=== PATIENT | male | born 1950 | race Caucasian/White ===

== ENCOUNTER → 2020-06-14 13:30 | Outpatient (CLI) | payer SELFPAY, OTHER ==
--- NOTE | 2020-06-14 13:32 | CT_ITS ---
STUDY: CT SCAN LOWER EXTREMITY LEFT REASON FOR EXAM: Male, 69 years old. VARUS DEFORMITY/LEFT KNEE. [facility] protocol. RADIATION DOSAGE (If Supplied By Facility): CTDIvol = ( 18.74 ) mGy, DLP = ( 1745.95 ) mGycm. Individualized dose optimization techniques were used for this CT.? TECHNIQUE: Multiple axial tomographic images of the left hip joint, knee joint and ankle joint were obtained. Coronal and sagittal reconstruction was obtained as well. COMPARISON: None. FINDINGS: Imaging of the left hip joint was obtained. There is a mild degree of joint space narrowing. Small subchondral cyst in the superior lateral aspect of the acetabulum. There is varus deformity of the knee joint. Moderate degree of joint space narrowing of the medial compartment of the knee joint with multiple small subchondral cysts in the medial tibial plateau. Smaller cysts are also seen in the subchondral region of the medial femoral condyle. Small subchondral cysts are also seen in the lateral femoral condyle. Moderate degree of osteoarthritis of the patellofemoral joint with degenerative spur formation. Moderate size joint effusion. Imaging of the ankle joint was obtained. The ankle mortise is intact. Calcaneal spurs. CT/Extremity Lower without Contra IMPRESSION: Moderate degree of joint space narrowing of the medial compartment of knee joint with multiple subchondral cyst in the medial tibial plateau and medial femoral condyle. Mild degree of osteoarthritis involving the hip joint. Electronically Signed: Lanre Lr MD at 15:06 EDT , Service support ,
== END ==
PROVIDERS: PCP Family Medicine; Referring Provider Orthopaedic Surgery; Visit Provider Orthopaedic Surgery
DX: M21.162 Varus deformity, not elsewhere classified, left knee (principal)
CPT/HCPCS: 73700

== ENCOUNTER 2020-07-02 11:56 | Observation (INO) | payer SELFPAY, OTHER ==
--- NOTE | 2020-06-27 16:00 | EKG12_ITS ---
Test Reason : PREOP Blood Pressure : / mmHG Vent. Rate : 060 BPM Atrial Rate : 060 BPM P-R Int : 160 ms QRS Dur : 096 ms QT Int : 440 ms P-R-T Axes : 017 -50 090 degrees QTc Int : 440 ms Normal sinus rhythm Left anterior fascicular block Nonspecific T wave abnormality Poor R wave progression Abnormal ECG Confirmed by SHON TA, ELADIA ([id number]), editorial assistant GABRIELLE MCKENNA ([id number]) on 06/28/2020 11:21:44 AM Referred By: Phill Hair Confirmed By:ELADIA MENENDEZ MD
[2020-06-27 17:22] LABS: Hematocrit 36.4 % (40-54); Hemoglobin 12.7 g/dL (13.0-16.5); Mean Corp Hgb Conc 34.9 g/dL (32-36); Mean Corpuscular Volume 97.3 fL (80-94); Mean Platelet Vol. 9.9 fl (6.2-12.0); Platelet Count 206 K/mm3 (150-450); RBC Distribution Width CV 12.3 % (11.6-14.6); RBC Distribution Width SD 43.9 fl (35.1-43.9); Red Blood Count 3.74 M/mm3 (4.6-6.2); White Blood Count 6.2 K/mm3 (4.4-11.0)
[2020-06-27 17:44] LABS: Anion Gap 4 (5-15); BUN 31 mg/dL (7-18); BUN/Creat Ratio 29.8 RATIO (10-20); Calcium,Total 8.4 mg/dL (8.5-10.1); Chloride 107 mmol/L (98-107); Creatinine, Serum 1.04 mg/dL (0.70-1.30); EST Glomerular Filtration Rate 76 mL/min (>60); Est Glom Filt Rate - Afr Amer 91 mL/min (>60); Glucose 80 mg/dL (74-106); Magnesium 2.3 mg/dL (1.6-2.6); Potassium 3.7 mmol/L (3.5-5.1); Sodium Level 138 mmol/L (136-145)
[2020-07-02] VITALS (12 sets, daily range): BP systolic 116–158; BP diastolic 61–81; PULSE 51–86; RESP 16–18; TEMP 36.2–37.7; O2SAT 95–100; BMI 30.7
--- NOTE | 2020-07-02 | KNEE_PTH ---
PATIENT: DARCY HURTADO LOC: MS3 U#:[id number] AGE/SX: 69/M ROOM: [facility] RE07/02/[address]: Dr. Phill Hair MD : [id number] BED: 1 DIS: 07/03/2020 SPEC #: [id number] RECD: 07/02/20 15:46 STATUS: SABRINA REQ #: [id number] DIO: 07/02/20 00:[address]: Phill Hair DEPT: SURGICAL PATHOLOGY RECD BY: Jose Francisco Martin ENTERED: 07/03/20 07:24 SP TYPE: TOTAL KNEE OTHR DR: Dr. Edgard Segovia MD Tissues: Knee, NOS Procedures: Decalcification bone/plaque Surgery Specimen Level IV HEADER OPERATION: ERAS, total knee replacement robotic arm assisted PRE-OP DIAGNOSIS: Osteoarthritis left knee; varus deformity TISSUE SUBMITTED: Left knee replacement bone MICROSCOPIC DIAGNOSIS Left knee, total knee replacement/resection: Pieces of bone with degenerative osteoarthritic changes. Fibroadipose tissue, fibroconnective tissue and moderately reactive synovial tissue. SADIA:shu 07/06/2020 MICROSCOPIC DESCRIPTION Slides are reviewed. GROSS DESCRIPTION Received is one container designated left knee replacement bone. The specimen consists of multiple fragments of oh-yellow bone measuring in aggregate 11 x 10 x 4 cm. Also in the specimen container are multiple fragments of yellow-white soft tissue measuring in aggregate 6 x 6 x 2 cm. A number of bony fragments contain articular surfaces consistent with tibial plateau and femoral condyle and displaying prominent osteophyte formation, eburnation, and bone erosion. Assurance Auditor sections are submitted in two cassettes as follows: 1 - soft tissue, 2 - bone after decalcification. / SADIA:shu 07/03/20 TC:5 [facility]: [id number], [id number]
[2020-07-02] MEDS: Lactated Ringers 1,000 ML 100 ML IV (10:45)
[2020-07-02] MEDS: Acetaminophen 500 MG Tablet 1000 MG PO ×2 (10:47→20:54)
[2020-07-02 11:11] LABS: Bedside Glucose 68 mg/dL (70-110)
[2020-07-02] MEDS: Cefazolin 2 GM in 0.9% Normal Saline 100 ML IV (12:26)
[2020-07-02] MEDS: dexAMETHasone 10 MG/ML Vial IV (13:38)
[2020-07-02] MEDS: Lactated Ringers 1,000 ML 125 ML IV ×2 (14:00→16:53)
--- NOTE | 2020-07-02 14:35 | PRO.PCM_ITS ---
Procedure Report Date of Procedure: 07/02/20 Preoperative diagnosis: Left knee severe posttraumatic arthritis Postoperative diagnosis: Same Title of procedure : Left total knee replacement, press fit ABELARDO Surgeon: Phill Hair MD Art Psychotherapist Or Therapist: Alondra Daily PA-C Anesthesia: General adductor canal nerve block Anesthesiologist:Dr. Starks / RYANNE Special medications: Ancef, tranexamic acid Complications: None EBL 100 Indications for surgery: Patient is a [69-year-old [male] with a history of knee arthritis appropriately treated and failed conservative measures and wished to proceed with total knee replacement. Patient was cleared for surgery by the medical doctor and has been evaluated by the anesthesia staff Findings: Intraoperative findings showed severe arthritis of the knee. Patient underwent knee replacement using [employer] press-fit total knee components Abelardo robotic assisted. Size [5] femur, size [5] tibia, [32X10] asymmetric X3 patella, size [5-14 CS] X3 tibial polyethylene insert, knee was nicely balanced. Patella tracked well. Patient underwent standard wound closure in layers. Vicryl and strata fix sutures utilized followed by skin antonieta. reference library assistant, physician shipping assistant, was utilized throughout the entire procedure. They were vital in helping with patient positioning, holding of retractors, exposing the tissues adequately for safe completion of the procedure including cutting of the bone, helping housing court judge appropriate alignment and sizing of the components, implantation of the components, as well as wound closure, bandage application, and safe patient transfer. Without assistant professor surgical technology, physician shipping assistant, surgical time would have been significantly increased, and surgical outcome could have been less optimal. Description of procedure: The patient was taken to the OR, transferred to the OR table. They were given a spinal anesthetic. Ancef was given IV preoperatively. Tranexamic acid was given IV preoperatively. Well-padded tourniquet was applied to the upper thigh of the operative leg. Nonoperative leg had a ELVIA hose and SCD on throughout. O perative limb was prepped padded and draped in usual orthopedic sterile fashion for the procedure. We began by injecting the pain relieving solution in the anterior superior aspect of the knee region. The limb was exsanguinated, and the tourniquet was applied to 275 mmHg. Made a midline incision through skin, subcutaneous tissue, bringing down us on the extensor mechanism. Medial parapatellar arthrotomy was carried out. Straw-colored joint fluid was evacuated. We raised a sleeve of tissue off the upper medial tibia. Resected some of the infrapatellar fat pad. We remove degenerative medial and lateral meniscus. Removed bone spurs from about the patella. We removed tissue off the anterior aspect of the distal femur. Patella was translated laterally and/or everted as needed throughout the procedure. ACL was resected. PCL was preserved. Collateral ligaments were preserved. Physician placed the retractors and shipping assistant held retractors protecting above ligaments throughout the procedure. Patella was everted. Measured. Appropriate resection was carried out leaving us between a 13 and 15 mm thick patella. Metal plate was applied. Pins were placed in the femur and tibia at appropriate locations being bicortical. Check pin was placed in the distal femur and upper tibia at appropriate location. [employer] robot was appropriately prepared femur then tibia. Knee was appropriately stressed in 90 degrees of flexion as well as in extension. Robot was appropriately manipulated to allow for approximately 19 to 21 mm of flexion and extension gap. Good sizing and alignment of components was noted on computer. Robotic cuts were carried out cutting the upper tibia first, followed by femoral cuts. Art Psychotherapist Or Therapist help with retraction and protecting soft tissues throughout. Bone fragments were removed. we then sized off the upper tibia with the help of the shipping assistant. We then checked flexion extension gaps finding them to be adequate and equal. Tibial trial with plastic insert was inserted. Next the distal femoral trial was applied. Tibial tray was allowed to freefloat with a 9 mm insert. Knee was flexed and extended an external alignment guide is utilized. Tibial trial was pinned in place. Drill holes were placed into the distal femoral trial and it was removed. Punch was used on the upper tibial component and that was removed. The sclerotic bone was sof tened with a sharp pin. Bone spurs had been removed from the posterior medial and posterior lateral aspect of the femur while the shipping assistant lifted up on the distal femur and exposed each compartment. Patella was everted and measured. Patella was sized. Clamp was utilized. 3 drill holes were placed through the clamp held by the shipping assistant. Trial patella was placed and removed. Bleeding was controlled at the back of the knee with the bovey. Posterior knee soft tissues were carefully injected with pain relieving solution. Components were checked and open. . The bony surfaces cleaned and dried. Tibia, femur, patella press-fit into position. Tibial insert was placed just before placing the femur. Art Psychotherapist Or Therapist held retractors exposing the bony surfaces of the tibia and femur which were hammered in position. Patella clamped into position.balancing was again checked with the computer. Checkpoints and femoral and tibial pins removed. we thoroughly irrigated and debrided the knee. Bleeding controlled with the Bovie. Knee was again thoroughly irrigated. Irresept solution utilized. Patella noted to track nicely. We repaired the arthrotomy with a combination of #1 Vicryl and #2 strata fix. We did a mid layer of 1 Vicryl and #0 strata fix running. Antonieta were utilized on the incision as well as pin sites. Mepilex dressing applied. ELVIA hose and SCDs applied. Patient was awoken from their anesthetic, transferred back to their own bed and recovery room in satisfactory condition. Second dose of IV Tranexamic acid was given while closing wound. Patient was admitted, appropriate IV antibiotic to be utilized as well as medication for DVT prevention. Hopeful discharge in 1-2 days. Hospitalist service and Physical therapy will be consulted. Ancef was used 2 g IV preoperatively. Aspirin 81 mg twice daily will be utilized for postoperative DVT prevention This note was generated with [employer] dictation software. It may contain incorrect words, spelling, and punctuation that were not noted in checking the note before signing.
--- NOTE | 2020-07-02 15:25 | RAD_ITS ---
STUDY: X-RAY - LEFT KNEE REASON FOR EXAM: Male, 69 years old. Post op -- AP and Lateral xray of operative knee in PACU TECHNIQUE: 2 view(s) of the knee. COMPARISON: None. FINDINGS: Normal visualized distal femur. Normal visualized proximal tibia and fibula. Normal proximal tibiofibular articulation. The patient is status post total knee replacement. There is good alignment. Postoperative soft tissue changes. RAD/Knee 1 or 2 Views IMPRESSION: Status post total knee replacement. There is good alignment. Postoperative soft tissue changes. Electronically Signed: Lanre Lr MD at 15:38 EDT , Service support ,
[2020-07-02] MEDS: Aspirin 81 MG TAB.CHEW PO (18:39)
--- NOTE | 2020-07-02 19:03 | NURSING ---
PT C/O URINARY RETENTION, DRIBBLING IN URINAL. BLADDER SCAN 462ML. STRAIGHT CATHED FOR 600ML CLEAR YELLOW URINE.
[2020-07-02] MEDS: Cefazolin 1 GM/50 ML BAG IV (20:51)
[2020-07-02] MEDS: Senna/Docusate Sodium 1 Tablet 2 TABLET PO (20:53)
[2020-07-02] MEDS: Atorvastatin Calcium 40 MG Tablet PO (20:54)
[2020-07-02] MEDS: Tamsulosin HCl 0.4 MG Capsule PO (20:54)
[2020-07-02] MEDS: Metoprolol Tartrate 50 MG Tablet PO (21:21)
[2020-07-03 00:51] VITALS: BP 95/56; PULSE 72; RESP 16; TEMP 37.4; O2SAT 97
[2020-07-03] MEDS: Lactated Ringers 1,000 ML 125 ML IV (01:15)
[2020-07-03 04:58] VITALS: BP 108/61; PULSE 67; RESP 18; TEMP 36.9; O2SAT 94
[2020-07-03] MEDS: Acetaminophen 500 MG Tablet 1000 MG PO ×2 (05:00→13:41)
[2020-07-03] MEDS: Cefazolin 1 GM/50 ML BAG IV (05:00)
[2020-07-03 06:51] LABS: Hematocrit 26.8 % (40-54); Hemoglobin 9.5 g/dL (13.0-16.5); Mean Corp Hgb Conc 35.4 g/dL (32-36); Mean Corpuscular Hgb 40.9 pg (27.0-32.0); Mean Corpuscular Volume 115.5 fL (80-94); Mean Platelet Vol. 10.4 fl (6.2-12.0); Platelet Count 138 K/mm3 (150-450); RBC Distribution Width CV 15.7 % (11.6-14.6); RBC Distribution Width SD 51.8 fl (35.1-43.9); Red Blood Count 2.32 M/mm3 (4.6-6.2); White Blood Count 10.7 K/mm3 (4.4-11.0)
--- NOTE | 2020-07-03 07:06 | PCM.PN.ORT ---
Subjective: 69-year-old male underwent a right total knee replacement yesterday has done very well overnight pain seems to be well controlled he denies chest pain shortness of breath dizziness or calf pain the plan will be for a discharge to home later today he would like to work with home health physical therapy. He admits that following a cardiac surgery he was unable to urinate. Although he had to be straight cath last night he has been able to void on his own this morning without any urinary burning urgency or frequency. Objective: Patient is alert and oriented x3 no acute distress at rest breathing easily without respiratory distress inspection of left knee reveals dry waterproof bandages intact without active drainage warmth or signs of infection. Negative Abimael bilaterally without signs of DVT. Sensation intact light touch pedal pulses present and equal bilaterally. Neurovascularly intact. - Physical Exam Vitals/I&O's: Vital Signs Temp Pulse Resp BP Pulse Ox 98.4 F 67 18 108/61 94 07/03/20 04:58 07/03/20 04:58 07/03/20 04:58 07/03/20 04:58 07/03/20 04:58 Oxygen Flow Rate (L/min) 6 Oxygen Delivery Method Room Air Weight: 85.1 kg Body Mass Index (BMI) 30.7 Intake and Output for Last 24 Hours 07/01/20 07/02/20 07/03/20 23:59 23:59 23:59 Intake Total 2579.17 / 2579.17 1072.42 / 1072.42 Output Total 765 / 1565 1380 / 1380 Balance 1814.17 / 1014.17 -307.58 / -307.58 Laboratory Results 07/02/20 10:44: POC Glucose 68 L 07/03/20 06:34: WBC 10.7, RBC 2.32 L, Hgb 9.5 L, Hct 26.8 L, MCV 115.5 H, MCH 40.9 H, MCHC 35.4, RDW Std Deviation 51.8 H, RDW Coeff of Lex 15.7 H, Plt Count 138 L, MPV 10.4 07/03/20 06:34: Sodium Pending, Potassium Pending, Chloride Pending, Carbon Dioxide Pending, Anion Gap Pending, BUN Pending, Creatinine Pending, Est GFR (MDRD) Af Amer Pending, Est GFR (MDRD) Non-Af Pending, BUN/Creatinine Ratio Pending, Glucose Pending, Calcium Pending Current Medications Acetaminophen (Acetaminophen 500 Mg Tablet) 1,000 mg PO Q8 [facility] Last Admin: 07/03/20 05:00 Dose: 1,000 mg Documented by: Aspirin (Aspirin 81 Mg Tab.Chew) 81 mg PO BIDCM [facility] Last Admin: 07/02/20 18:39 Dose: 81 mg Documented by: Atorvastatin Calcium (Atorvastatin Calcium 40 Mg Tablet) 40 mg PO QHS [facility] Last Admin: 07/02/20 20:54 Dose: 40 mg Documented by: Metoprolol Tartrate (Metoprolol Tartrate 50 Mg Tablet) 50 mg PO BID [facility] Last Admin: 07/02/20 21:21 Dose: 50 mg Documented by: Morphine Sulfate (Morphine 2 Mg/Ml Syringe) 2 - 4 mg IV Q2H PRN PRN PRN Reason: Pain Score 6-10 Morphine Sulfate (Morphine 4 Mg/Ml Syringe) 2 - 4 mg IV Q2H PRN PRN PRN Reason: Pain Score 6-10 Ondansetron HCl (Ondansetron 4 Mg/2 Ml Vial) 4 mg IV Q8H PRN PRN PRN Reason: NAUSEA Oxycodone HCl (Oxycodone 5 Mg Tablet) 5 - 10 mg PO Q4H PRN PRN PRN Reason: Pain Score 4-10 Senna/Docusate Sodium (Senna/Docusate Sodium 1 Tablet) 2 tablet PO BID [facility] Last Admin: 07/02/20 20:53 Dose: 2 tablet Documented by: Sodium Chloride (0.9% Nacl Peripheral Flush Adult/Peds) 5 - 15 ml IV UD PRN PRN Reason: SALINE FLUSH Tamsulosin HCl (Tamsulosin Hcl 0.4 Mg Capsule) 0.4 mg PO QHS [facility] Last Admin: 07/02/20 20:54 Dose: 0.4 mg Documented by: Medical Necessity - Tobacco Use Smoking Status: Never smoker Tobacco Use: Non-smoker Assessment/Plan 1. Status post right total knee replacement postoperative day #1 2. Continue oxycodone and Tylenol for pain control 3. DVT prophylaxis bilateral teds SCDs and aspirin 81 mg twice daily for 1 month postoperative 4. Begin PT/OT weightbearing as tolerated right lower extremity with a walker plan for discharge with home health physical therapy 5. Drop in hemoglobin hematocrit with thrombocytopenia asymptomatic without indication for transfusion continue to monitor 6. Encourage incentive spirometry 7. Continue discharge planning with case management 8. Patient is orthopedically stable and okay for discharge to home today if having adequate pain control doing well with physical therapy we will plan to reassess in the office 2 weeks postoperative Postoperative x-rays were discussed and reviewed with Dr. Phill Hair as well as case and findings above. X-rays are consistent with a press-fit right total knee replacement prostheses in good position without evidence of hardware failure or loosening antonieta are in place at the surgical site over the skin.
--- NOTE | 2020-07-03 07:14 | DCINST_ITS ---
Discharge Diet: No Restrictions Discharge Activity: May Not Drive, May not drive while taking narcotic pain medications., Use Walker May shower in (days): 2 - Okay to shower over waterproof dressing Ice area for (Minutes): 20 - every hour while awake. Weight Bearing Status: Weight bearing as tolerated Elevate: Operative Extremity Additional Activity Instructions:: Wear elastic stockings for 2 weeks after your surgery. See postoperative pink sheet for more instructions Call your doctor if your incision/area has: Continuous Slow Oozing, Sudden Increased Bleeding, Increased Pain/ Swelling, Increased Redness, Foul Smelling Discharge Call your doctor if you observe: Fever of 101 or Higher, Coldness, Increased Pain, Numbness or Tingling, Change in Color, Shortness of breath, Chest pain, Calf discomfort, Uncontrolled pain Remove Dressing in (days):: 5 Cleanse incision/area with: Soap & Water Additional Dressing/Incision Instructions:: See postoperative pink sheet for additional instructions Allergies/Adverse Reactions: Allergies No Known Allergies Allergy (Verified 07/02/20 10:34) Medications to take at Discharge Atorvastatin Calcium [Lipitor] 40 mg PO QHS 06/18/20 B-Complex with Vitamin C [Vitamin B Complex-Vitamin C] 1 each PO DAILY 06/18/20 Metoprolol Tartrate [Lopressor (beta solitario)] 50 mg PO BID 06/18/20 Tamsulosin HCl [Flomax] 0.4 mg PO QHS 06/18/20 Acetaminophen [Tylenol] 1,000 mg PO Q8 #60 tablet 07/03/20 Aspirin [Aspirin, Baby] 81 mg PO BIDCM #60 tab.chew 07/03/20 Oxycodone [Oxyir] 5 - 10 mg PO Q4H PRN PRN 7 Days #56 tablet 07/03/20 Senna/Docusate Sodium [Senokot-S] 2 tablet PO BID #30 tablet 07/03/20 The following prescriptions were given: Aspirin [Aspirin, Baby] 81 mg PO BIDCM #60 tab.chew Prescription Printed Oxycodone [Oxyir] 5 - 10 mg PO Q4H PRN PRN 7 Days #56 tablet PRN Reason: Pain Score 4-10 Prescription Printed Senna/Docusate Sodium [Senokot-S] 2 tablet PO BID #30 tablet Prescription Printed Acetaminophen [Tylenol] 1,000 mg PO Q8 #60 tablet Prescription Printed Primary Care Physician: Edgard Segovia MD [Primary Care Provider] - Test Results: Test results from this visit will be discussed in further detail at your follow- up appointment, if applicable.
[2020-07-03 07:36] LABS: Anion Gap 6 (5-15); BUN 23 mg/dL (7-18); BUN/Creat Ratio 21.1 RATIO (10-20); Calcium,Total 7.5 mg/dL (8.5-10.1); Chloride 105 mmol/L (98-107); Creatinine, Serum 1.09 mg/dL (0.70-1.30); EST Glomerular Filtration Rate 72 mL/min (>60); Est Glom Filt Rate - Afr Amer 87 mL/min (>60); Estimated Creatinine Clearance 57.21 ml/min; Glucose 208 mg/dL (74-106); Potassium 3.7 mmol/L (3.5-5.1); Sodium Level 131 mmol/L (136-145)
[2020-07-03 08:53] VITALS: BP 117/56; PULSE 65; RESP 18; TEMP 36.8; O2SAT 97
[2020-07-03 08:55] VITALS: PULSE 65
[2020-07-03] MEDS: Metoprolol Tartrate 50 MG Tablet PO (08:55)
[2020-07-03] MEDS: Aspirin 81 MG TAB.CHEW PO (08:55)
[2020-07-03] MEDS: Senna/Docusate Sodium 1 Tablet 2 TABLET PO (08:55)
--- NOTE | 2020-07-03 11:15 | CASEMGMT ---
CLAUDIA ROWAN Assessment: Face to Face with pt for initial transition planning/care coordination assessment. RN HARPAL introduced self and role at [facility], pt voices understanding and consents to assessment. Pt is A/O x4 and answers all questions appropriately at this time. Pt sitting up in chair in no distress.Care providers, pharmacy, and demographics verified/updated. Admitting Dx: R TK with JAYDEN PCP: Luca Specialists: Bay, cardio Preferred Pharmacy: [facility] Insurance: [facility] Package Plan, [facility] Money Prescription Benefit: no LW/HPOA: Pt reports that he has a LW and DPOA. States his DPOA is Dragan White. LNOK: Vidal Lubin, son Living Arrangements: Pt lives with in a two story house with 3 steps with a rail. Pt denies concerns at home. Transportation: Pt hires a shuttle driver for transportation. Denies concerns with transportation. DME/HHC/SNF: Pt states he has a walker, elevated toilet seat, exercise bike and walking stick. Pt denies previous HHC or SNF stay. Pt states he would like to have home therapy after dc. Provided pt list of private pay therapy options and local C agencies. Pt states he wants the agency in [place] that Ty works for. He believes this to be [employer]. TC to [employer] and spoke with Lizbeth. She verified Ty is employed and is able to accept pt for therapy. Pt states no further concerns/needs. Advised pt to ask CM if any further question/concerns/needs arise, voices understanding. Pt Goal: Home with [employer] therapy. Plan: Home with HHC.
[2020-07-03] MEDS: Tamsulosin HCl 0.4 MG Capsule PO (12:09)
[2020-07-03 13:39] VITALS: BP 98/49; PULSE 64; RESP 18; TEMP 37.1; O2SAT 98
--- NOTE | 2020-07-03 14:09 | PHA.DC.MC ---
Pharmacy Service has performed discharge medication reconciliation and counseling for this patient. 1. ACETAMINOPHEN 1000MG PO Q8H 2. OXYCODONE 5-10MG PO Q4H PRN PAIN 4-10 3. SENNA/DOCUSATE 2T PO BID The patient's discharge medication list was reviewed for discrepancies and discrepancies were resolved. Home Medications Atorvastatin Calcium [Lipitor] 40 mg PO QHS 06/18/20 B-Complex with Vitamin C [Vitamin B Complex-Vitamin C] 1 each PO DAILY 06/18/20 Metoprolol Tartrate [Lopressor (beta solitario)] 50 mg PO BID 06/18/20 Tamsulosin HCl [Flomax] 0.4 mg PO QHS 06/18/20 Acetaminophen [Tylenol] 1,000 mg PO Q8 #60 tablet 07/03/20 Aspirin [Aspirin, Baby] 81 mg PO BIDCM #60 tab.chew 07/03/20 Oxycodone [Oxyir] 5 - 10 mg PO Q4H PRN PRN 7 Days #56 tablet 07/03/20 Senna/Docusate Sodium [Senokot-S] 2 tablet PO BID #30 tablet 07/03/20 The patient was counseled on the following discharge medications and changes in medications for homegoing were reviewed. The Reason for Use, instructions for use, and potential side effects were reviewed for all new medications. The patient's questions regarding all of their medications were answered. The patient was able to verbally demonstrate an understanding of their discharge medications.
== END 2020-07-03 14:35 | disposition home health service (06) ==
LOC: SDC 07-03 10:14 → MS3 07-03 10:14
PROVIDERS: Anesthesiology; Admitting Provider Orthopaedic Surgery; PCP Family Medicine; Referring Provider Orthopaedic Surgery; Visit Provider Orthopaedic Surgery
PROC: 0SRD0JZ Replacement of Left Knee Joint with Synthetic Substitute, Open Approach (ICD-10-PCS; CPT 27447; principal; 2020-07-02 12:00)
DX: M17.12 Unilateral primary osteoarthritis, left knee (principal); Z20.828 Contact with and (suspected) exposure to other viral communicable diseases; E78.00 Pure hypercholesterolemia, unspecified; I10 Essential (primary) hypertension; M21.162 Varus deformity, not elsewhere classified, left knee; E66.9 Obesity, unspecified; Z79.899 Other long term (current) drug therapy; Z79.82 Long term (current) use of aspirin; Z95.2 Presence of prosthetic heart valve; Z68.31 Body mass index [BMI] 31.0-31.9, adult
CPT/HCPCS: 01402; 27447; 64447; S2900; 36415; 73560; 80048; 82962; 83735; 85027; 87081; 87426; 88305; 88311; 93005; 96361; 96365; 96366; 97110; 97116; 97162; 97166; 97530; 97535; 99218; 99251; C1776; C9803; J7120; G0378; G0379; G0463; J2405

== ENCOUNTER → 2020-12-17 13:26 | Outpatient (CLI) | payer SELFPAY, OTHER ==
[2020-07-02 16:51] VITALS: BMI 30.7
--- NOTE | 2020-12-17 13:28 | CT_ITS ---
CT Lower Extremity W/O Contrast Injection INDICATION:70 years old Male presenting with VARUS DEFORMITY,NOT ELSEWHERE CLASSIFIED, LEFT KNEE. TECHNIQUE: Sequential axial 2.5 mm collimated images are obtained through the left hip and ankle. 0.625 mm images were obtained through the right knee. Auto exposure controls were utilized during this CT exam to meet the ALARA standards for radiation dose reduction. Iterative reconstruction software was utilized to reduce radiation dose to the patient. Images were reformatted in sagittal and coronal planes and forwarded for preoperative planning. No intravenous contrast was administered. COMPARISON: 07/02/2020. FINDINGS: Contiguous axial images of the left lower extremity was obtained in different collimations. May 2.0 cm calcification is visualized within the urinary bladder, concentric rings of calcification visualized along the periphery. Prominent prostate gland with subtle scattered coarse calcifications. Bilateral inguinal hernia visualized with herniation of fat visualized more prominent on the left. Atherosclerotic calcifications visualized in the left lower extremity vessels. Images demonstrate degenerative changes, no evidence of cortical irregularities or lucencies to suggest fractures, no evidence of lytic or sclerotic bone lesions are seen. No evidence of left hip dislocation, narrowing of the bilateral hip joint space is seen. Moderate to severe narrowing of the medial knee joint spaces, moderate narrowing of the lateral joint space and the patellofemoral joint space is seen. Prominent osteophyte formation is seen. Subchondral lucencies visualized most prominent in the medial tibial plateau and in the medial femoral condyle subcortical bone. Small suprapatellar fluid is seen. The ankle mortise is well-maintained, the talar dome is unremarkable, degenerative changes visualized with no evidence of cortical irregularity or lucency to suggest a fracture. No evidence of dislocation is seen. IMPRESSION: Tricompartmental osteoarthritic changes in the left knee joint. Electronically Signed: Rah Vincent MD at 11:10 EDT Tel , Service support , CT/Extremity Lower without Contra
== END ==
PROVIDERS: PCP Family Medicine; Referring Provider Orthopaedic Surgery; Visit Provider Orthopaedic Surgery
DX: M21.161 Varus deformity, not elsewhere classified, right knee (principal)
CPT/HCPCS: 73700

== ENCOUNTER 2020-12-31 16:10 | Observation (INO) | payer SELFPAY, OTHER ==
[2020-07-02 16:51] VITALS: BMI 30.7
[2020-12-31] VITALS (15 sets, daily range): BP systolic 111–138; BP diastolic 61–82; PULSE 58–75; RESP 14–18; TEMP 36.2–36.8; O2SAT 95–100; BMI 31.8; BMI 33.6
[2020-12-31] MEDS: Scopolamine 1mg/72hr Patch 1 PATCH TD (12:01)
[2020-12-31] MEDS: Acetaminophen 500 MG Tablet 1000 MG PO ×2 (12:02→21:35)
[2020-12-31] MEDS: Gabapentin 600 MG Tablet PO (12:02)
[2020-12-31] MEDS: Celecoxib 200 MG Capsule 400 MG PO (12:02)
[2020-12-31] MEDS: Lactated Ringers 1,000 ML 100 ML IV ×3 (12:04→16:30)
[2020-12-31 12:26] LABS: Bedside Glucose 102 mg/dL (70-110)
[2020-12-31 12:52] LABS: Magnesium 2.2 mg/dL (1.6-2.6)
--- NOTE | 2020-12-31 13:30 | KNEE_PTH ---
PATIENT: DARCY HURTADO LOC: [facility] U#:[id number] AGE/SX: 70/M ROOM: [facility] RE12/31/[address]: Dr. Meagan Messer MD : [id number] BED: 1 DIS: 01/01/2021 SPEC #: [id number] RECD: 01/01/21 12:23 STATUS: SABRINA REQ #: [id number] DIO: 12/31/20 13:[address]: Phill Hair DEPT: SURGICAL PATHOLOGY RECD BY: Gayla Samuel ENTERED: 01/01/21 12:58 SP TYPE: TOTAL KNEE OTHR DR: MD Dr. Phill Whitney MD Dr. Zachary Boyd, MD Tissues: Knee, NOS Procedures: Decalcification bone/plaque Surgery Specimen Level IV Comments: @ Ordering doctor for DEC edited from to DR.[email or web address] Andrews by TEVIN at 01/01/21 1455 @ Ordering doctor for SUIV edited from to DR.[email or web address] Andrews by TEVIN at 01/01/21 1455 @ Submitting doctor edited from to DR.[email or web address] Andrews by TEVIN at 01/01/21 1455 HEADER OPERATION: ERAS, total knee replacement robotic arm assist PRE-OP DIAGNOSIS: Right knee severe osteoarthritis TISSUE SUBMITTED: Right knee bone MICROSCOPIC DIAGNOSIS Right knee bone, total knee replacement/resection: Pieces of bone with degenerative osteoarthritic changes. Fibroadipose tissue and fibroconnective tissue. SADIA:shu 01/04/2021 MICROSCOPIC DESCRIPTION Slides are reviewed. GROSS DESCRIPTION Received is one container designated bone and soft tissue right knee. The specimen consists of multiple fragments of oh-yellow bone measuring in aggregate 15 x 14 x 1.5 cm. Also in the specimen container are multiple fragments of yellow-white soft tissue measuring in aggregate 1 x 1 x 0.2 cm. A number of bony fragments contain articular surfaces consistent with tibial plateau and femoral condyle and displaying prominent osteophyte formation, eburnation, and bone erosion. Construction Person sections are submitted in two cassettes as follows: 1 - soft tissue, 2 - bone after decalcification. / AM:shu 01/01/21 TC:5 CPT: 65641, [id number]
[2020-12-31] MEDS: dexAMETHasone 10 MG/ML Vial IV (14:04)
[2020-12-31] MEDS: Cefazolin 2 GM in 0.9% Normal Saline 100 ML IV (14:13)
--- NOTE | 2020-12-31 16:13 | PCM.OP.BLANK ---
Operative Report Date of Procedure: 12/31/20 Preoperative diagnosis: Right knee severe osteo arthritis Postoperative diagnosis: Same Title of procedure : Right total knee replacement, press fit ABELARDO Surgeon: Phill Hair MD Disability Services Coordinator: Alondra Daily PA-C Anesthesia: spinal . adductor canal nerve block Anesthesiologist:Dr. Underwood / RYANNE Special medications: Ancef, tranexamic acid Indications for surgery: Patient is a [70 -year-old [male] with a history of knee arthritis appropriately treated and failed conservative measures and wished to proceed with total knee replacement. Patient was cleared for surgery by the medical doctor and has been evaluated by the anesthesia staff Findings: Intraoperative findings showed severe arthritis of the knee. Patient underwent knee replacement using [employer] press-fit total knee components Abelardo robotic assisted. Size [5] femur, size [6] tibia, [32 x 10] asymmetric X3 patella cemented, size [6-13mm CS] X3 tibial polyethylene insert, knee was nicely balanced. Patella tracked well. Patient underwent standard wound closure in layers. Vicryl and strata fix sutures utilized followed by skin antonieta. billing and accounting staff assistant, physician printer's assistant, was utilized throughout the entire procedure. They were vital in helping with patient positioning, holding of retractors, exposing the tissues adequately for safe completion of the procedure including cutting of the bone, helping dog show judge appropriate alignment and sizing of the components, implantation of the components, as well as wound closure, bandage application, and safe patient transfer. Without fitness assistant, physician printer's assistant, surgical time would have been significantly increased, and surgical outcome could have been less optimal. Description of procedure: The patient was taken to the OR, transferred to the OR table. They were given a spinal anesthetic. Ancef was given IV preoperatively. Tranexamic acid was given IV preoperatively. Well-padded tourniquet was applied to the upper thigh of the operative leg. Nonoperative leg had a ELVIA hose and SCD on throughout. Operative limb was prepped padded and draped in usual orthopedic sterile fashion for the procedure. We began by injecting the pain relieving solution in the anterior superior aspect of the knee region. The limb was exsanguinated, and the tourniquet was applied to 250 mmHg. Made a midline incision through skin, subcutaneous tissue, bringing down us on the extensor mechanism. Medial parapatellar arthrotomy was carried out. Straw-colored joint fluid was evacuated. We raised a sleeve of tissue off the upper medial tibia. Resected some of the infrapatellar fat pad. We remove degenerative medial and lateral meniscus. Removed bone spurs from about the patella. We removed tissue off the anterior aspect of the distal femur. Patella was translated laterally and/or everted as needed throughout the procedure. ACL was resected. PCL was preserved. Collateral ligaments were preserved. Physician placed the retractors and printer's assistant held retractors protecting above ligaments throughout the procedure. Patella was everted. Measured. Appropriate resection was carried out leaving us between a 13 and 15 mm thick patella. Metal plate was applied. Pins were placed in the femur and tibia at appropriate locations being bicortical. Check pin was placed in the distal femur and upper tibia at appropriate location. The [employer] robot was appropriately prepared femur then tibia. Knee was appropriately stressed in 90 degrees of flexion as well as in extension. Robot was appropriately manipulated to allow for approximately 19 to 21 mm of flexion and extension gap. Good sizing and alignment of components was noted on computer. Robotic cuts were carried out cutting the upper tibia first, followed by femoral cuts. Disability Services Coordinator help with retraction and protecting soft tissues throughout. Bone fragments were removed. we then sized off the upper tibia with the help of the printer's assistant. We then checked flexion extension gaps finding them to be adequate and equal. Tibial trial with plastic insert was inserted. Next the distal femoral trial was applied. Tibial tray was allowed to freefloat with a 9 mm insert. Knee was flexed and extended an external alignment guide is utilized. Tibial trial was pinned in place. Drill holes were placed into the distal femoral trial and it was removed. Punch was used on the upper tibial component and that was removed. 13 mm tibial insert was decided upon,, the sclerotic bone was softened with a sharp pin. Bone spurs had been removed from the posterior medial and posterior lateral aspect of the femur while the printer's assistant lifted up on the distal femur and exposed each compartment. Patella was everted and measured. Patella was sized. Clamp was utilized. 3 drill holes were placed through the clamp held by the printer's assistant. Trial patella was placed and removed. Bleeding was controlled at the back of the knee with the bovey. Posterior knee soft tissues were carefully injected with pain relieving solution. Components were checked and open. . The bony surfaces cleaned and dried. Tibia, femur, press-fit into position. Tibial insert was placed just before placing the femur. patella cemented. Disability Services Coordinator held retractors exposing the bony surfaces of the tibia and femur which were hammered in position. Patella clamped into position.balancing was again checked with the computer. Checkpoints and femoral and tibial pins removed. we thoroughly irrigated and debrided the knee. Tourniquet was let down at 117 minutes. bleeding controlled with the Bovie. Knee was again thoroughly irrigated. Irresept solution utilized. sterile betaine. Patella noted to track nicely. We repaired the arthrotomy with a combination of #1 Vicryl and #2 strata fix. We did a mid layer of 1 Vicryl and #0 strata fix running. Antonieta were utilized on the incision as well as pin sites. Mepilex dressing applied. ELVIA hose and SCDs applied. Patient was awoken from their anesthetic, transferred back to their own bed and recovery room in satisfactory condition. Second dose of IV Tranexamic acid was given while closing wound. Patient was admitted, appropriate IV antibiotic to be utilized as well as medication for DVT prevention. Hopeful discharge in 1-2 days. Hospitalist service and Physical therapy will be consulted. Ancef was used 2 g IV preoperatively. aspirin 81 bid for dvt prevention. This note was generated with [employer] dictation software. It may contain incorrect words, spelling, and punctuation that were not noted in checking the note before signing.
--- NOTE | 2020-12-31 17:07 | EKG12_ITS ---
Test Reason : RUN OF LVL6 Blood Pressure : / mmHG Vent. Rate : 071 BPM Atrial Rate : 071 BPM P-R Int : 186 ms QRS Dur : 098 ms QT Int : 464 ms P-R-T Axes : 050 -50 078 degrees QTc Int : 504 ms Normal sinus rhythm Left anterior fascicular block Prolonged QT Abnormal ECG When compared with ECG of 27-JUN-2020 16:10, QT has lengthened Confirmed by NATE TA, RY ([id number]), video editor GABRIELLE MCKENNA ([id number]) on 01/03/2021 7:55:48 AM Referred By: DIVINE Confirmed By:RY SULLIVAN MD
--- NOTE | 2020-12-31 17:35 | RAD_ITS ---
STUDY: X-RAY - RIGHT KNEE REASON FOR EXAM: Male, 70 years old. Postop for knee replacement surgery TECHNIQUE: 2 view(s) of the knee. COMPARISON: None. FINDINGS: Patient is postop from knee replacement surgery. Components are in anatomic alignment. No plain film evidence of postoperative comp location. Normal postoperative soft tissue swelling and subcutaneous emphysema. RAD/Knee 1 or 2 Views IMPRESSION: Replaced right knee joint demonstrates anatomic alignment, no plain film evidence of hardware, complication, failure, or acute traumatic abnormality Electronically Signed: Dennis Rousseau MD at 17:57 EDT , Service support ,
--- NOTE | 2020-12-31 17:54 | PCM.PN.HOSP ---
Subjective Subjective Consult postop medical management: 70-year-old male with past medical history of CAD status post CABG, status post aortic valve replacement in November [address] [facility], hypertension, hyperlipidemia, BPH who comes in for elective robotic assisted right knee arthroplasty. Patient surgery was planned as an outpatient. He however was noted to have runs of V. tach. His magnesium was 2.1. Patient was seen and examined. He denied any chest pain or dizziness. He felt sleepy from anesthesia. Objective Data Objective Data Vital Signs: Vital Signs Temp Pulse Resp BP Pulse Ox 97.1 F L 75 16 137/69 H 100 12/31/20 16:49 12/31/20 17:45 12/31/20 17:45 12/31/20 17:45 12/31/20 17:45 Oxygen Flow Rate (L/min) 6 Oxygen Delivery Method Simple Mask Weight: 86.8 kg Body Mass Index (BMI) 31.8 Intake & Output: Intake and Output for Last 24 Hours 12/29/20 12/30/20 12/31/20 23:59 23:59 23:59 Intake Total 2435 / 2435 Balance 2435 / 2435 Lab / Micro Data Result Diagrams: 12/31/20 17:10 12/31/20 17:10 Labs: Laboratory Results - last 24 hr 12/31/20 11:50: Magnesium 2.2 12/31/20 12:05: POC Glucose 102 Micro: Microbiology 12/28/20 08:45 Interface Orders SARS-CoV-2 Antigen (Rapid) - Final Physical Exam Narrative Physical exam: General: Alert, Oriented x3, Cooperative, slightly lethargic from surgery HEENT: Atraumatic Oral: Moist Mucosa Neck: Supple Lungs: Clear to auscultation Cardiovascular: HS I+II, regular, 3/6 ejection systolic murmur Abdomen: Bowel Sounds Present, Soft, Non Tender Extremities: No edema, dressing over right knee, cooling mat in place Assessment & Plan Assessment/Plan (1) Ventricular tachycardia (paroxysmal): (2) Status post knee replacement: QUALIFIERS: Laterality: right Qualified Code(s): Z96.651 - Presence of right artificial knee joint PLAN: 1. Episodes of V-tach, 10 beats, noted postoperatively Patient's magnesium is 2.1, potassium is 3.5 Telemetry since has been stable Will give potassium 40 mEq x 1 to keep potassium >4 Repeat BMP and magnesium in a.m. 2. CAD status post CABG/status post aortic valve replacement a year ago Troponins are negative, EKG shows no acute ST-T changes Continue metoprolol, atorvastatin, aspirin 3. POD#0 status post right knee replacement, pain is fairly controlled Continue with pain meds as ordered Wound management as well as PT and OT per orthopedic surgery 4. BPH, continue Flomax 5. DVT PPx- per primary orthopedic team. Thank you for the consult will follow with you Charges/Coding Visit Charges Office Visits / Consults: [id number] OP Consult L5
[2020-12-31 18:04] LABS: Troponin-I HS 8 pg/mL (3.0-78.0)
[2020-12-31 18:07] LABS: AST(SGOT) 20 U/L (15-37); Alanine Aminotransfer ALT/SGPT 24 U/L (16-61); Albumin, Serum 3.2 g/dL (3.2-5.0); Alkaline Phosphatase 55 U/L (45-117); Anion Gap 6 (5-15); BUN 22 mg/dL (7-18); BUN/Creat Ratio 21.2 RATIO (10-20); Calcium,Total 7.8 mg/dL (8.5-10.1); Chloride 106 mmol/L (98-107); Creatinine, Serum 1.04 mg/dL (0.70-1.30); EST Glomerular Filtration Rate 75 mL/min (>60); Est Glom Filt Rate - Afr Amer 91 mL/min (>60); Estimated Creatinine Clearance 59.13 ml/min; Globulin 3.1 g/dL (2.2-4.2); Glucose 134 mg/dL (74-106); Potassium 3.5 mmol/L (3.5-5.1); Protein, Total 6.3 g/dL (6.4-8.2); Sodium Level 138 mmol/L (136-145)
[2020-12-31 18:37] LABS: Magnesium 2.4 mg/dL (1.6-2.6)
[2020-12-31] MEDS: Lactated Ringers 1,000 ML 125 ML IV (19:58)
[2020-12-31] MEDS: Tamsulosin HCl 0.4 MG Capsule PO (21:35)
[2020-12-31] MEDS: Senna/Docusate Sodium 1 Tablet 2 TABLET PO (21:35)
[2020-12-31] MEDS: Metoprolol Tartrate 50 MG Tablet PO (21:36)
[2020-12-31] MEDS: Atorvastatin Calcium 40 MG Tablet PO (21:36)
[2020-12-31] MEDS: Cefazolin 1 GM/50 ML BAG IV (21:38)
[2021-01-01 03:04] VITALS: BP 103/75; PULSE 67; RESP 16; TEMP 36.6; O2SAT 99
[2021-01-01] MEDS: Lactated Ringers 1,000 ML 125 ML IV (04:17)
[2021-01-01 06:05] LABS: Hematocrit 34.5 % (40-54); Hemoglobin 11.7 g/dL (13.0-16.5); Mean Corp Hgb Conc 33.9 g/dL (32-36); Mean Corpuscular Hgb 33.7 pg (27.0-32.0); Mean Corpuscular Volume 99.4 fL (80-94); Mean Platelet Vol. 9.7 fl (6.2-12.0); Platelet Count 211 K/mm3 (150-450); RBC Distribution Width SD 46.7 fl (35.1-43.9); Red Blood Count 3.47 M/mm3 (4.6-6.2); White Blood Count 14.1 K/mm3 (4.4-11.0)
[2021-01-01] MEDS: Acetaminophen 500 MG Tablet 1000 MG PO ×2 (06:07→14:04)
[2021-01-01] MEDS: Cefazolin 1 GM/50 ML BAG IV (06:08)
[2021-01-01 06:34] LABS: Anion Gap 7 (5-15); BUN 26 mg/dL (7-18); BUN/Creat Ratio 21.7 RATIO (10-20); Calcium,Total 7.7 mg/dL (8.5-10.1); Chloride 106 mmol/L (98-107); EST Glomerular Filtration Rate 64 mL/min (>60); Est Glom Filt Rate - Afr Amer 77 mL/min (>60); Estimated Creatinine Clearance 51.25 ml/min; Glucose 146 mg/dL (74-106); Potassium 4.2 mmol/L (3.5-5.1); Sodium Level 137 mmol/L (136-145)
[2021-01-01 08:05] VITALS: PULSE 59
[2021-01-01 10:30] VITALS: BP 101/62; PULSE 92; RESP 18; TEMP 36.7; O2SAT 98
[2021-01-01 10:35] VITALS: PULSE 92
[2021-01-01] MEDS: Metoprolol Tartrate 50 MG Tablet PO (10:35)
[2021-01-01] MEDS: Aspirin 81 MG TAB.CHEW PO (10:35)
[2021-01-01] MEDS: Senna/Docusate Sodium 1 Tablet 2 TABLET PO (10:35)
--- NOTE | 2021-01-01 12:00 | PCM.PN.ORT ---
Subjective Subjective Patient is s/p right sided total knee arthroplasty with Dr. Hair on 12/31/2020. Patient was initially slated to go home as an outpatient however he had runs of V. tach x10 beats requiring him to stay overnight. Patient resting comfortably in bed. Rates pain to/ 10 at rest. With movement 5/10. States taking Tylenol and oxycodone as needed and ice help to relieve pain. Patient has been up with therapy. Walking with the assit of a walker. Afebrile, no chest pain, shortness of breath, negative calf pain/ erythema, and no other signs of DVT. Objective Data Objective Data Vital Signs: Vital Signs Temp Pulse Resp BP Pulse Ox 98.0 F 92 18 101/62 98 01/01/21 10:30 01/01/21 10:35 01/01/21 10:30 01/01/21 10:30 01/01/21 10:30 Oxygen Flow Rate (L/min) 6 Oxygen Delivery Method Room Air Weight: 91.626 kg Body Mass Index (BMI) 33.6 Intake & Output: Intake and Output for Last 24 Hours 12/30/20 12/31/20 01/01/21 23:59 23:59 23:59 Intake Total 2435 / 2435 3200.00 / 3200.00 Output Total 100 / 100 Balance 2435 / 2435 3100.00 / 3100.00 Lab / Micro Data Result Diagrams: 01/01/21 05:52 01/01/21 05:52 Labs: Laboratory Results - last 24 hr 12/31/20 11:50: Magnesium 2.2 12/31/20 12:05: POC Glucose 102 12/31/20 17:10: Troponin I High Sens 8 12/31/20 17:10: Sodium 138, Potassium 3.5, Chloride 106, Carbon Dioxide 26.0, Anion Gap 6, BUN 22 H, Creatinine 1.04, Estim Creat Clear Calc 59.13, Est GFR (MDRD) Af Amer 91, Est GFR (MDRD) Non-Af 75, BUN/Creatinine Ratio 21.2 H, Glucose 134 H, Calcium 7.8 L, Total Bilirubin 0.90, AST 20, ALT 24, Alkaline Phosphatase 55, Total Protein 6.3 L, Albumin 3.2, Globulin 3.1, Albumin/Globulin Ratio 1.0 12/31/20 18:11: Magnesium 2.4 01/01/21 05:52: WBC 14.1 H, RBC 3.47 L, Hgb 11.7 L, Hct 34.5 L, MCV 99.4 H, MCH 33.7 H, MCHC 33.9, RDW Std Deviation 46.7 H, RDW Coeff of Lex 13.0, Plt Count 211, MPV 9.7 01/01/21 05:52: Sodium 137, Potassium 4.2, Chloride 106, Carbon Dioxide 24.0, Anion Gap 7, BUN 26 H, Creatinine 1.20, Estim Creat Clear Calc 51.25, Est GFR (MDRD) Af Amer 77, Est GFR (MDRD) Non-Af 64, BUN/Creatinine Ratio 21.7 H, Glucose 146 H, Calcium 7.7 L Micro: Microbiology 12/28/20 08:45 Interface Orders SARS-CoV-2 Antigen (Rapid) - Final Radiography Diagnostic Testing: Radiology Impression Knee X-Ray 12/31/20 17:35 IMPRESSION: Replaced right knee joint demonstrates anatomic alignment, no plain film evidence of hardware, complication, failure, or acute traumatic abnormality Electronically Signed: Dennis Rousseau MD at 17:57 EDT , Service support , Physical Exam Narrative Patient resting comfortably in bed No signs of acute distress Satting well on room air Limb is warm to touch, Sensation intact throughout entire lower extremity, including saphenous, sural, superficial and deep peroneal, and tibial distribution. DP/PT pulses bounding. Dressing clear dry intact. Calf nontender to palpation, no erythema, no edema. Negative Homans Assessment & Plan Assessment/Plan (1) Status post knee replacement: QUALIFIERS: Laterality: right Qualified Code(s): Z96.651 - Presence of right artificial knee joint PLAN: 1. Will continue PT today 2. plan for discharge this afternoon following PT 3. Patient will follow up for his post op appointment as previously scheduled with Alondra Daily PA-C 4. Patient to begin outpatient PT as previously scheduled. 5. WBC 14.1 acute reactive leukocytosis: secondary to pre operative decadron. no acute systemic signs of infection. will monitor, and likely self resolve. 6. H/H 11.7/34.5: post operative anemia secondary to acute blood loss intraoperatively. Patient is asymptomatic at this time. No intraoperative complications. will continue to monitor. no acute interventions. 7. DVT prophylaxis : ASA 81 twice daily x4 weeks 8. Pain control: patient instructed to take tylenol 500mg 2 tablets TID. and oxycodone 1-2 tablets every 4-6 hours only as needed for pain control. 9. Medicine consulted due to 10 beats of V. tach. Patient was without runs of V. tach since yesterday at surgery. Troponin was negative EKG without ST changes. waiting on results of ECHO, and discharge recommendations from medicine.
--- NOTE | 2021-01-01 12:11 | PCM.DC ---
Discharge Instructions Diet Discharge Diet: No restrictions Dressing / Incision Call your doctor if your incision/area has: Continuous Slow Oozing, Sudden Increased Bleeding, Increased Pain/ Swelling, Increased Redness, Foul Smelling Discharge and Swelling at the incision site Call your doctor if you observe: Fever of 101 or Higher, Numbness or Tingling, Shortness of breath, Dizziness, Chest pain and Calf discomfort Remove Dressing in: 5 days Cleanse incision/area with: Soap & Water Follow Up Care Test Results: Test results from this visit will be discussed in further detail at your follow-up appointment, if applicable. Discharge Plan Admission Admit Date/Time: 12/31/20 16:10 Attending Provider: Meagan Messer Primary Care Provider: Edgard Segovia Discharge Orders/Prescriptions Prescriptions: New acetaminophen 500 mg Tablet 1,000 mg PO Q8 Qty: 90 RF: 0 aspirin 81 mg Tablet,Chewable 81 mg PO BID Qty: 60 RF: 0 Continued atorvastatin 40 MG tablet 40 mg PO QHS RF: 0 tamsulosin 0.4 MG capsule 0.4 mg PO QHS RF: 0 metoprolol tartrate 50 MG tablet 50 mg PO BID RF: 0 B-complex with vitamin C 1 EACH tablet 1 each PO DAILY RF: 0 Held aspirin 81 MG tablet,chewable 81 mg PO DAILY RF: 0 Hold Instructions: Resume on 01/30/21. Referrals / Follow Up: Edgard Segovia MD [Primary Care Provider] - Disposition Disposition (needs filled in before D/C Order can be placed): Home, Self Care
--- NOTE | 2021-01-01 14:10 | PHA.DC.MR ---
Pharmacy Service has performed discharge medication reconciliation for this patient. The patient's discharge medication list was reviewed for discrepancies and discrepancies were resolved. Home Medications B-complex with vitamin C 1 each PO DAILY 06/18/20 atorvastatin 40 mg PO QHS 06/18/20 metoprolol tartrate 50 mg PO BID 06/18/20 tamsulosin 0.4 mg PO QHS 06/18/20 aspirin 81 mg PO DAILY 12/18/20 acetaminophen 1,000 mg PO Q8 #90 tab 01/01/21 aspirin 81 mg PO BID #60 tab 01/01/21
[2021-01-01 14:30] VITALS: BP 110/76; PULSE 88; RESP 18; TEMP 36.4; O2SAT 99
--- NOTE | 2021-01-01 14:33 | PN.HOSP_ITS ---
Subjective Subjective Patient seen and examined. He had no complaints and felt well. Review of systems otherwise negative. He didnt have any palpitations or dizziness, and no nausea or vomiting. Review of systems otherwise negative. Objective Data Objective Data Vital Signs: Vital Signs Temp Pulse Resp BP Pulse Ox 97.6 F L 88 18 110/76 99 01/01/21 14:30 01/01/21 14:30 01/01/21 14:30 01/01/21 14:30 01/01/21 14:30 Oxygen Flow Rate (L/min) 6 Oxygen Delivery Method Room Air Weight: 202 lb Body Mass Index (BMI) 33.6 Intake & Output: Intake and Output for Last 24 Hours 12/30/20 12/31/20 01/01/21 23:59 23:59 23:59 Intake Total 2435 / 2435 3200.00 / 3200.00 Output Total 100 / 100 Balance 2435 / 2435 3100.00 / 3100.00 Lab / Micro Data Result Diagrams: 01/01/21 05:52 01/01/21 05:52 Labs: Laboratory Results - last 24 hr 12/31/20 17:10: Troponin I High Sens 8 12/31/20 17:10: Sodium 138, Potassium 3.5, Chloride 106, Carbon Dioxide 26.0, Anion Gap 6, BUN 22 H, Creatinine 1.04, Estim Creat Clear Calc 59.13, Est GFR (MDRD) Af Amer 91, Est GFR (MDRD) Non-Af 75, BUN/Creatinine Ratio 21.2 H, Glucose 134 H, Calcium 7.8 L, Total Bilirubin 0.90, AST 20, ALT 24, Alkaline Phosphatase 55, Total Protein 6.3 L, Albumin 3.2, Globulin 3.1, Albumin/Globulin Ratio 1.0 12/31/20 18:11: Magnesium 2.4 01/01/21 05:52: WBC 14.1 H, RBC 3.47 L, Hgb 11.7 L, Hct 34.5 L, MCV 99.4 H, MCH 33.7 H, MCHC 33.9, RDW Std Deviation 46.7 H, RDW Coeff of Lex 13.0, Plt Count 211, MPV 9.7 01/01/21 05:52: Sodium 137, Potassium 4.2, Chloride 106, Carbon Dioxide 24.0, Anion Gap 7, BUN 26 H, Creatinine 1.20, Estim Creat Clear Calc 51.25, Est GFR (MDRD) Af Amer 77, Est GFR (MDRD) Non-Af 64, BUN/Creatinine Ratio 21.7 H, Glucose 146 H, Calcium 7.7 L Micro: Microbiology 12/28/20 08:45 Interface Orders SARS-CoV-2 Antigen (Rapid) - Final Radiography Diagnostic Testing: Radiology Impression Knee X-Ray 12/31/20 17:35 IMPRESSION: Replaced right knee joint demonstrates anatomic alignment, no plain film evidence of hardware, complication, failure, or acute traumatic abnormality Electronically Signed: Dennis Rousseau MD at 17:57 EDT , Service support , Physical Exam Const alert, oriented x3 and no apparent distress Exam Limitations: no limitations HEENT head/scalp atraumatic, moist oral mucous membranes and oropharynx normal Head and Scalp: normocephalic Eyes PERRL, EOMs intact bilaterally and conjunctivae normal Neck no lymphadenopathy Resp normal respiratory effort, no retractions, no use of accessory muscles and clear to auscultation bilaterally Cardio regular rate, regular rhythm, S1 normal heart sound, S2 normal heart sound and no murmurs GI normal to inspection, nondistended, normoactive bowel sounds, soft to palpation, non-tender and non-distended Extremity normal to inspection, full ROM and no clubbing, cyanosis or edema Peripheral Pulses: Yes pulses 2+ throughout Skin no rashes or lesions noted Neuro oriented x3, CN's II-XII intact bilaterally and moves all extremities Sensorium / Orientation: awake and alert Psych affect normal Assessment & Plan Assessment/Plan (1) Ventricular tachycardia (paroxysmal): (2) Status post knee replacement: QUALIFIERS: Laterality: right Qualified Code(s): Z96.651 - Presence of right artificial knee joint PLAN: #paroxysmal ventricular tachycardia * patient noted to have developed paroxysmal ventricular tachycardia after surgery yesterday * on metoprolol 50mg bid. * has remained stable since, and denies any palpitations, dizziness or chest pain * 2D echo today showed EF of 65% with normal left ventricular size and mild concentric left ventricular hypertrophy and stage 1 diastolic dysfunction with mildly enlarged left atrium * I did review and discuss the strips with Dr Jansen, and recommendation was to continue patient on his metoprolol 50mg bid, and to get a 48 hour holter monitor, results of which will be sent to patient's primary continuous improvement analyst, Dr Nguyen at [place] * Potassium today is 4.2 * #CAD s/p CABG * On aspirin and statin as well as metoprolol * #History of aortic valve replacement: Stable #Right knee arthritis s/p right knee replacement * Management as per primary team orthopedics. PT OT on board. * #BPH: on flomax #DVT prophylaxis: as per orthopedics. Patient stable for discharge from hospitalist standpoint. To follow up with his continuous improvement analyst at [facility] as soon as possible. Discussed with orthopedics PA who saw patient today. * Charges/Coding Visit Charges Inpatient E&M: 43915 Subs Hosp L2
== END 2021-01-01 13:50 | disposition home or self-care (01) ==
LOC: SDC 17:37 → PCU 17:37
PROVIDERS: Anesthesiology; Admitting Provider Orthopaedic Surgery; PCP Family Medicine; Visit Provider Student in an Organized Health Care Education/Training Program
PROC: 0SRC0JZ Replacement of Right Knee Joint with Synthetic Substitute, Open Approach (ICD-10-PCS; CPT 27447; principal; 2020-12-31 13:00)
DX: M17.11 Unilateral primary osteoarthritis, right knee (principal); I25.10 Atherosclerotic heart disease of native coronary artery without angina pectoris; I10 Essential (primary) hypertension; E78.5 Hyperlipidemia, unspecified; I47.2 Ventricular tachycardia; N40.0 Benign prostatic hyperplasia without lower urinary tract symptoms; Z79.82 Long term (current) use of aspirin; Z95.1 Presence of aortocoronary bypass graft; Z79.899 Other long term (current) drug therapy
CPT/HCPCS: 01402; 27447; 64447; S2900; 36415; 73560; 80048; 80053; 82962; 83735; 84484; 85027; 87426; 88305; 88311; 93005; 93306; 96361; 96365; 96366; 97110; 97162; 97166; 97530; 99218; C1776; C9803; J7120; G0378

== ENCOUNTER → 2021-01-01 13:59 | Outpatient (CLI) | payer OTHER, SELFPAY | PROVIDERS: PCP Family Medicine; Referring Provider Orthopaedic Surgery; Visit Provider Orthopaedic Surgery | DX: I49.9 Cardiac arrhythmia, unspecified (principal) | CPT/HCPCS: 93225; 93226 ==